=== PATIENT | male | born 1980 | race Caucasian/White ===

== ENCOUNTER 2017-12-08 16:08 | Emergency (ER) | payer SELFPAY ==
[~2017-12-08] VITALS: Ht 175.3 cm; Wt 93.0 kg
--- NOTE | 2017-12-08 16:32 | NUR ---
DR BUSH AT BEDSIDE FOR EVAL.
[2017-12-08 16:33] LABS: BASOPHILS # (AUTO) 0.1 /CMM (0.0-0.2); MONOCYTES # (AUTO) 0.4 /CMM (0.1-1.30); MONOCYTES % (AUTO) 7.5 % (2.0-12.0); PLATELET COUNT (AUTO) 193 /CMM (150-450)
[2017-12-08 16:37] LABS: BASOPHILS % (AUTO) 1.4 % (0.0-2.0); EOSINOPHILS % (AUTO) 1.5 % (0.0-6.0); HEMATOCRIT 46 % (39-51); HEMOGLOBIN 15.3 g/dL (13.5-17.5); LYMPHOCYTES # (AUTO) 1.8 /CMM (0.8-4.8); MEAN CORPUSCULAR HEMOGLOBIN 28 PG (26.0-33.0); MEAN CORPUSCULAR HGB CONC 33 g/dl (31.0-36.0); MEAN CORPUSCULAR VOLUME 85 fL (80-96); NEUTROPHILS # (AUTO) 3.1 /CMM (1.8-8.9); NEUTROPHILS % (AUTO) 57.6 % (43.0-81.0); RDW COEFFICIENT OF VARIATION 11.9 (11.5-15.0); RED BLOOD CELL COUNT(AUTO) 5.42 MIL/uL (4.5-6.0); WHITE BLOOD COUNT (AUTO) 5.5 K/uL (4.3-11.0)
[2017-12-08 16:50] LABS: CALCIUM, SERUM 8.7 mg/dL (8.5-10.1); CREATININE 1.1 mg/dL (0.6-1.3); POTASSIUM 3.9 mmol/L (3.5-5.1)
[2017-12-08 16:55] LABS: ALBUMIN 3.8 g/dL (3.4-5.0); BILIRUBIN,DIRECT 0.1 mg/dL (0.0-0.2); BILIRUBIN,TOTAL 0.4 mg/dL (0.2-1.0); TOTAL PROTEIN, SERUM 7.4 g/dL (6.4-8.2)
--- NOTE | 2017-12-08 17:45 | NUR ---
Patient discharged to home in stable condition. Written and verbal after care instructions given. Patient verbalizes understanding of instruction.
[2017-12-08 17:46] VITALS: BP 127/65
== END 2017-12-08 17:47 | disposition home or self-care (01) ==
LOC: ER 16:11
DX: K62.5 Hemorrhage of anus and rectum (principal); Z88.5 Allergy status to narcotic agent
CPT/HCPCS: 36415; 80048; 80076; 83690; 85025; 99284; A4606 ×2; Z7610 ×2